=== PATIENT | male | born 1965 | race Hispanic/Latino ===

== ENCOUNTER → 2017-05-17 | Outpatient (CLI) | payer OTHER ==
[~2017-05-17] MED LIST: IOPAMIDOL 370 MG/ML 200 ML INFUS..BTL INJ ONE
[2017-05-17 10:35] LABS: BLOOD UREA NITROGEN 14 mg/dL (7-26); BUN/CREATININE RATIO 16 (6-25); EST GLOMERULAR FILTRATION RATE > 60 ML/MIN (60-)
--- NOTE | 2017-05-17 12:01 | Diagnostic Imaging Report ---
PROCEDURE: CT ABDOMEN WITH CONTRAST TECHNIQUE: The abdomen was scanned utilizing a multidetector helical scanner from the diaphragm to the iliac crest after the IV administration of 100 cc of Isovue 370. Coronal and sagittal multiplanar reformations were obtained. DLP: 596.5 mGy-cm COMPARISON: None. INDICATIONS: GALLSTONES, UPPER QUADRANT PAIN FINDINGS: LOWER THORAX: Mild dependent atelectasis. HEPATOBILIARY: No focal hepatic lesions. No biliary ductal dilatation. Cholecystectomy. SPLEEN: No splenomegaly. PANCREAS: No focal masses or ductal dilatation. ADRENALS: No adrenal nodules. KIDNEYS: No hydronephrosis or solid mass lesions. Nonobstructing right renal 0.3 cm calculus in the interpolar region. Right posterior interpolar region 3.8 cm cyst. PERITONEUM / RETROPERITONEUM: No free air or fluid. Surgical clip deep and slightly inferior to the umbilicus. LYMPH NODES: No lymphadenopathy. VESSELS: Moderate atherosclerotic disease. No abdominal aortic aneurysm. GI TRACT: Visualized portions of the bowel demonstrate no distention or wall thickening. Visualized portions of the appendix are normal. BONES AND SOFT TISSUES: Left L4 pars defect. Mild multilevel degenerative changes of the spine. IMPRESSION: 1. No acute abnormalities in the abdomen. 2. Cholecystectomy. No biliary ductal dilatation. 3. Right nephrolithiasis. Dictated by: Jaylen Huynh M.D. on 05/17/2017 at 12:01 Electronically approved by: Jaylen Huynh M.D. on 05/17/2017 at 12:01
== END ==
LOC: CT 09:16
PROVIDERS: ATTEND Internal Medicine
DX: G51.3 Clonic hemifacial spasm (principal); K80.00 Calculus of gallbladder with acute cholecystitis without obstruction
CPT/HCPCS: 36415; 74160; 82565; 84520; Q9967